=== PATIENT | female | born 1955 | race American Indian/Alaskan Native ===

== ENCOUNTER 2017-04-22 08:03 | Outpatient (CLI) | payer OTHER ==
--- NOTE | 2017-04-22 13:44 | Mammography Report ---
Bilateral digital screening mammogram with CAD. History: Screening. Comparison study is dated March 03, 2016. Findings: There is scattered fibroglandular densities. In the lateral aspect of the right breast, there is an area of asymmetry which can't be localized on the MLO projection. In the upper quadrant of the left breast, there is a small ill-defined parenchymal asymmetry. No architectural distortion or suspicious calcifications are seen. Impression: Bilateral asymmetries. BI-RADS code: 0. Recommendation: Bilateral spot compression images, 90 degree views, and ultrasound if needed.
== END 2017-04-22 08:04 | disposition home or self-care (01) ==
LOC: MAMMO 08:03
PROVIDERS: ATTEND Pediatrics
DX: Z12.31 Encounter for screening mammogram for malignant neoplasm of breast (principal)
CPT/HCPCS: 77067; G0202

== ENCOUNTER 2017-05-26 08:29 | Outpatient (CLI) | payer OTHER ==
--- NOTE | 2017-05-26 14:53 | Ultrasound Report ---
Bilateral diagnostic mammogram and bilateral targeted breast ultrasound. History: Recall for bilateral parenchymal asymmetries. Findings: Spot compression images of the area of interest in the left breast confirm a very small nodular asymmetry in the upper-outer quadrant of the left breast. Sonographic evaluation of the upper-outer quadrant demonstrates an 8 mm x 3 mm x 5 mm complex circumscribed lesion which has a central area of increased echogenicity surrounded by a hypoechoic zone. This is consistent with an intramammary lymph node. A spot compression image of the lateral aspect of the right breast in the CC projection confirms an ill-defined parenchymal asymmetry in the posterior aspect of the breast, but this is not identified with certainty on either the 90 degree view or the MLO view obtained on April 22. Sonographic evaluation of the entire lateral half of the right breast demonstrates a 6 x 4 mm circumscribed lesion at 12:00 no acoustic shadowing. This has benign features. At 6:00 position, there is a slightly lobulated cyst measuring 6 mm in maximum diameter. Neither of these correspond to the mammographic density. Impression: 1. Persistent right parenchymal asymmetry in the lateral aspect of the right breast demonstrated only in the CC projection with no definite sonographic correlate. 2. Small benign lesion in the left breast probably representing an intramammary lymph node. BI-RADS code: 3 a. Recommendation: A repeat right mammogram and right breast ultrasound are recommended in 3 months to reevaluate the above findings (right breast only).
== END 2017-05-26 08:30 | disposition home or self-care (01) ==
LOC: MAMMO 08:29
PROVIDERS: ATTEND Pediatrics
DX: N64.89 Other specified disorders of breast (principal)
CPT/HCPCS: 76642; G0204; 77066

== ENCOUNTER 2017-08-26 10:06 | Outpatient (CLI) | payer OTHER ==
--- NOTE | 2017-08-26 10:51 | Mammography Report ---
RIGHT DIGITAL DIAGNOSTIC MAMMOGRAM with CAD: 08/26/17 10:06:00 CLINICAL: Six month followup for outer asymmetry. COMPARISON:04/22/17 and 05/26/17 mammograms. Ultrasound at that time was negative. FINDINGS: Routine views plus true lateral and spot magnification and exaggerated CC views were performed. The outer parenchymal asymmetry on the routine view demonstrates satisfactory effacement on spot view. MLO and lateral views are negative. IMPRESSION: No mammographic evidence of malignancy. BI-RADS CATEGORY: 2 - - Benign RECOMMENDATION: Return to routine mammographic screening. ACR BI-RADS MAMMOGRAPHIC CODES: 0 = Needs additional imaging evaluation; 1 = Negative; 2 = Benign; 3 = Probably benign; 4 = Suspicious; 5 = Malignant; 6 = Known biopsy-proven malignancy COMMENT: 1. Dense breast tissue, i.e., adenosis, fibrocystic changes, etc., may obscure an underlying neoplasm. 2. Approximately 10% of cancers are not detected with mammography. 3. A negative mammography report should not delay biopsy if a clinically suspicious mass is present. COMMENT: Patient follow-up letters are generated via our [employer] application.
== END 2017-08-26 10:07 | disposition home or self-care (01) ==
LOC: MAMMO 10:06
PROVIDERS: ATTEND Pediatrics
DX: R92.8 Other abnormal and inconclusive findings on diagnostic imaging of breast (principal)
CPT/HCPCS: G0206-RT

== ENCOUNTER 2018-05-02 10:07 | Outpatient (CLI) | payer OTHER ==
--- NOTE | 2018-05-02 11:39 | Mammography Report ---
BILATERAL DIGITAL SCREENING MAMMOGRAM with CAD : 05/02/18 10:07:00 CLINICAL: Routine screening. COMPARISON:05/26/17 FINDINGS: The breasts are heterogeneously dense, which may obscure small masses. No mass, architectural distortion or suspicious calcifications. IMPRESSION: No mammographic evidence of malignancy. BI-RADS CATEGORY: 2 -- Benign RECOMMENDATION: Routine mammographic screening in one year. COMMENT: Patient follow-up letters are generated by our [employer] application.
== END 2018-05-02 10:08 | disposition home or self-care (01) ==
LOC: MAMMO 10:07
PROVIDERS: ATTEND Pediatrics
DX: Z12.31 Encounter for screening mammogram for malignant neoplasm of breast (principal); Z88.8 Allergy status to other drugs, medicaments and biological substances
CPT/HCPCS: 77067

== ENCOUNTER 2018-10-25 13:54 | Outpatient (CLI) | payer MEDICARE, OTHER ==
--- NOTE | 2018-10-25 14:41 | XRay Report ---
ROUTINE CHEST, TWO VIEWS: HISTORY: chest pain, pleurisy. The trachea, heart, mediastinal contour, lung loera and bony thorax are unremarkable. IMPRESSION: Unremarkable chest x-ray.
--- NOTE | 2018-10-27 15:18 | XRay Report ---
LEFT SHOULDER: History: Left shoulder pain. Routine views demonstrate normal bony and soft tissue structures with normal joint alignment of the shoulder. IMPRESSION: Normal study.
== END 2018-10-25 13:55 | disposition home or self-care (01) ==
LOC: XRAY 13:54
PROVIDERS: ATTEND Pediatrics
DX: M25.512 Pain in left shoulder (principal); R09.1 Pleurisy
CPT/HCPCS: 71046

== ENCOUNTER 2019-05-16 08:49 | Outpatient (CLI) | payer MEDICARE ==
--- NOTE | 2019-05-16 11:24 | Ultrasound Report ---
Transabdominal and transvaginal pelvic ultrasound INDICATION / CLINICAL INFORMATION: R10.2, PELVIC PAIN. COMPARISON: None available. FINDINGS: TRANSABDOMINAL: The uterus measures 6.5 x 3.7 x 4.2 cm. The endometrial stripe measures 3.4 mm AP. Th ere is a 1.2 cm hypoechoic solid mass in the uterine fundus characteristic of a fibroid. The right ov rico measures 1.9 x 1.7 x 1.1 cm. The left ovary measures 3.9 x 2.1 x 2.0 cm and contains a 1.9 cm fol licular cyst. There is normal blood flow to both ovaries on Doppler exam. No free fluid is seen. TRANSVAGINAL: The endometrial stripe measures 3.9 mm AP. There is a 1.2 cm fibroid in the uterine fun dus which is intramural in location. The left ovary measures 3.3 x 2.0 x 1.6 cm and contains a 1.9 cm follicular cyst. The right ovary is not seen. No free fluid is identified. IMPRESSION: 1. 1.2 cm intramural fundal fibroid. 2. 1.9 cm simple follicular cyst in the left ovary. No evidence of free fluid or torsion. Signer Name: Wilson Wilkins MD Signed: 05/16/2019 11:20 AM Workstation Name: [id number]
== END 2019-05-16 08:50 | disposition home or self-care (01) ==
LOC: US 08:49
PROVIDERS: ATTEND Pediatrics
DX: D25.1 Intramural leiomyoma of uterus (principal); N83.02 Follicular cyst of left ovary
CPT/HCPCS: 76830; 76856

== ENCOUNTER 2019-05-18 08:54 | Outpatient (CLI) | payer MEDICARE ==
--- NOTE | 2019-05-18 10:53 | Mammography Report ---
BILATERAL DIGITAL SCREENING MAMMOGRAM WITH CAD INDICATION: Screening. COMPARISONS: None. FINDINGS: Craniocaudal and mediolateral oblique views of both breasts were obtained using 2-D digital acquisition. In addition to standard review, the examination was analyzed for possible abnormalities using a computer-assisted detection device (iCAD). The breast tissue is heterogeneously dense, which may obscure small masses. A right asymmetry on the MLO view requires additional imaging. No architectural distortion or suspici ous calcifications. The left breast is negative. IMPRESSION: Right asymmetry requiring additional imaging. Recommend recall for right ML and spot compression MLO views and right breast ultrasound if needed. BI-RADS CATEGORY 0: INCOMPLETE - NEED ADDITIONAL IMAGING EVALUATION AND/OR PRIOR MAMMOGRAMS FOR COMP ARISON Information is entered into a reminder system for a target due date for the next mammogram. The resul ts and recommendations were sent to the patient by mail. Signer Name: Cam Vogel MD Signed: 05/18/2019 10:48 AM Workstation Name: [id number]
== END 2019-05-18 08:55 | disposition home or self-care (01) ==
LOC: MAMMO 08:54
PROVIDERS: ATTEND Pediatrics
DX: Z12.31 Encounter for screening mammogram for malignant neoplasm of breast (principal); M19.90 Unspecified osteoarthritis, unspecified site
CPT/HCPCS: 77067

== ENCOUNTER 2019-07-06 11:26 | Outpatient (CLI) | payer MEDICARE ==
--- NOTE | 2019-07-06 12:37 | Ultrasound Report ---
RIGHT DIGITAL DIAGNOSTIC MAMMOGRAM WITH CAD -- 07/06/2019 RIGHT LIMITED BREAST ULTRASOUND INDICATION: Recalled to evaluate asymmetry at screening. ABNORMAL MAMMOGRAM OF RIGHT BREAST TECHNIQUE: Digital right mammographic imaging was performed. Spot compression views were obtained. L imited ultrasound was performed. This examination was interpreted with the benefit of Computer-Aided Detection (CAD) analysis. COMPARISON: 05/18/2019 screening mammogram FINDINGS: Breast Density: The breasts are heterogeneously dense, which may obscure small masses. MAMMOGRAPHIC FINDINGS: Right lateral and spot compression MLO views were performed. Partial effacemen t of asymmetry on the spot view. The lateral view is negative. ULTRASOUND FINDINGS: Targeted ultrasound evaluation was performed of the area of interest. Ultrasou nd was performed from 12:00 to 9:00 and demonstrated a single cyst at 12:00 at the edge of the areola . No mass and no other cyst. No suspicious shadowing. IMPRESSION: Negative mammogram and negative targeted right breast ultrasound. A single benign cyst at 12:00 at the edge of the areola. Follow up recommendation: Routine yearly BI-RADS Category 2: Benign. A "normal" or negative report should not discourage follow up or biopsy of a clinically significant f inding. A written summary of these findings will be mailed to the patient. The patient will be entered into a mammography reporting system which will generate a reminder letter for the patient's next appointmen t at the appropriate interval. According to the [employer], yearly mammograms are recommended starting at age 40 and continuing as long as a woman is in good health. Breast MRI is recommended for women with an fantasma roximately 20-25% or greater lifetime risk of breast cancer, including women with a strong family his tory of breast or ovarian cancer and women who have been treated for Hodgkin's disease. Signer Name: Cam Vogel MD Signed: 07/06/2019 12:33 PM Workstation Name: [id number]
== END 2019-07-06 11:27 | disposition home or self-care (01) ==
LOC: MAMMO 11:26
PROVIDERS: ATTEND Pediatrics
DX: N60.01 Solitary cyst of right breast (principal); M19.90 Unspecified osteoarthritis, unspecified site